=== PATIENT | female | born 1960 | race Caucasian/White ===

== ENCOUNTER 2016-09-12 07:50 | Emergency (ER) | payer OTHER ==
[~2016-09-12 07:50] MED LIST: ACYCLOVIR400 MG PO; CENTURY PO; CLE150 PO; DIPHENHYDRAMINE25 M2 PO; ERYOO OD; FIBER LAXATIVE500 MG PO; LAC PO; LEV500 PO; LEVOTHYROXINE0.05 M2 PO; NEFAZODONE150 MG PO; PRESERVISION PO; [UNRECOGNIZED DRUG - OTHER] IL
[2016-09-12 07:57] VITALS: BP 114/64
[2016-09-12 09:05] LABS: BASOPHIL % 0.2 % (0-2); PLATELET COUNT 208 x10^3mcL (130-400); RED CELL DISTRIBUTION WIDTH 13.1 % (11.5-14.5)
[2016-09-12 09:18] LABS: CALCIUM 8.6 mg/dL (8.5-10.1); CARBON DIOXIDE 25.3 mmol/L (21-32); CHLORIDE SERUM 105 mmol/L (98-107); CREATININE SERUM 0.8 mg/dL (0.6-1.0); GFR1 > 60 mL/min; GLUCOSE SERUM 122 mg/dL (74-106); POTASSIUM SERUM 3.8 mmol/L (3.5-5.1); SODIUM SERUM 140 mmol/L (136-145)
[2016-09-12 09:23] LABS: ALBUMIN 3.7 g/dL (3.4-5.0); ALKALINE PHOSPHATASE 87 U/L (46-116); ALT/SGPT 27 U/L (14-59); AST/SGOT 30 U/L (15-37); BILIRUBIN TOTAL 0.67 mg/dL (0.20-1.00); LIPASE 142 IU/L (73-393)
[2016-09-12 09:32] LABS: UA SPECIFIC GRAVITY >=1.030 (1.005-1.035); microscopic required? YES; urine erythrocyte 1+ (NEGATIVE)
== END 2016-09-12 10:00 | disposition home or self-care (01) ==
LOC: ED 07:50
PROVIDERS: Emergency Medicine
DX: R10.30 Lower abdominal pain, unspecified (principal); E03.9 Hypothyroidism, unspecified; Q90.9 Down syndrome, unspecified; Z88.0 Allergy status to penicillin; Z88.2 Allergy status to sulfonamides; Z88.1 Allergy status to other antibiotic agents; Z79.899 Other long term (current) drug therapy
CPT/HCPCS: 36415

== ENCOUNTER 2016-10-22 17:28 | Emergency (ER) | payer OTHER ==
[2016-10-22 20:15] VITALS: BP 103/65
== END 2016-10-22 20:15 | disposition home or self-care (01) ==
LOC: ED 17:28
DX: S82.202A Unspecified fracture of shaft of left tibia, initial encounter for closed fracture (principal); S82.402A Unspecified fracture of shaft of left fibula, initial encounter for closed fracture; Q90.9 Down syndrome, unspecified; F79 Unspecified intellectual disabilities; I42.9 Cardiomyopathy, unspecified; Z88.0 Allergy status to penicillin; Z88.1 Allergy status to other antibiotic agents; W18.11XA Fall from or off toilet without subsequent striking against object, initial encounter; Y93.89 Activity, other specified; Y92.002 Bathroom of unspecified non-institutional (private) residence as the place of occurrence of the external cause; Y99.8 Other external cause status
CPT/HCPCS: J3010